=== PATIENT | female | born 1995 | race Caucasian/White ===

== ENCOUNTER 2020-11-07 00:18 | Inpatient (IN) | payer BC ==
[2020-11-07] MEDS ORDERED: Sodium Chloride 0.9% 10 ML Syringe FLUSH PRN ×2 (01:06→02:54)
[2020-11-07] MEDS ORDERED: Nalbuphine 10 MG/1 ML Vial IVPUSH PRN (01:06)
[2020-11-07] MEDS ORDERED: Lidocaine 1% 50 ML MDV INJECT ONE (01:06)
[2020-11-07] MEDS ORDERED: Ampicillin 2 GM in Sodium Chloride 0.9% 100 ML IV ONE (01:30)
[2020-11-07] MEDS: Lactated Ringers 1,000 ML IV SCH ×4 (01:51→07:34)
[2020-11-07] MEDS ORDERED: Lidocaine 1%/Sod Bicarbonate in NS 8.4% 1 ML Syringe IDERM PRN (02:54)
[2020-11-07] MEDS ORDERED: fentaNYL 100 MCG/2 ML SDV ONE (02:58)
[2020-11-07] MEDS ORDERED: Lactated Ringers 1,000 ML IV SCH (03:00)
--- NOTE | 2020-11-07 03:30 | PCM.PREANE ---
Preanesthetic Assessment - Procedure Proposed Procedure: jose - Anesthesia/Transfusion/Family Hx Anesthesia History: Prior Anesthesia Without Reaction Family History of Anesthesia Reaction: No Transfusion History: No Prior Transfusion(s) - Review of Systems General: No Symptoms Pulmonary: No Symptoms Cardiovascular: No Symptoms Gastrointestinal: No Symptoms Neurological: No Symptoms Other: Reports: None - Physical Assessment Vital Signs: Last Vital Signs Temp 98.9 F 11/07/20 00:32 Pulse 101 H 11/07/20 00:32 Resp 14 11/07/20 00:32 BP 130/89 11/07/20 00:32 Pulse Ox 98 11/07/20 00:32 Height: 5 ft 6 in Weight: 83.915 kg ASA Class: 2 Mental Status: Alert & Oriented x3 Airway Class: Mallampati = 2 Dentition: Reports: Normal Dentition Thyro-Mental Finger Breadths: 3 Mouth Opening Finger Breadths: 3 ROM/Head Extension: Full Lungs: Clear to Auscultation, Normal Respiratory Effort Cardiovascular: Regular Rate, Regular Rhythm - Lab Values: Laboratory Last Values WBC 14.24 K/mm3 (3.98-10.04) H 11/07/20 01:25 RBC 4.44 M/mm3 (3.98-5.22) 11/07/20 01:25 Hgb 12.7 gm/dl (11.2-15.7) 11/07/20 01:25 Hct 38.4 % (34.1-44.9) 11/07/20 01:25 MCV 86.5 fl (79.4-94.8) 11/07/20 01:25 MCH 28.6 pg (25.6-32.2) 11/07/20 01:25 MCHC 33.1 g/dl (32.2-35.5) 11/07/20 01:25 RDW Std Deviation 46.4 fL (36.4-46.3) H 11/07/20 01:25 Plt Count 177 K/mm3 (182-369) L 11/07/20 01:25 MPV 12.1 fl (9.4-12.3) 11/07/20 01:25 Neut % (Auto) 83.0 % (34.0-71.1) H 11/07/20 01:25 Lymph % (Auto) 11.0 % (19.3-51.7) L 11/07/20 01:25 [place] % (Auto) 5.0 % (4.7-12.5) 11/07/20 01:25 Eos % (Auto) 0.3 (0.7-5.8) L 11/07/20 01:25 Baso % (Auto) 0.1 % (0.1-1.2) 11/07/20 01:25 Neut # (Auto) 11.83 K/mm3 (1.56-6.13) H 11/07/20 01:25 Lymph # (Auto) 1.56 K/mm3 (1.18-3.74) 11/07/20 01:25 [place] # (Auto) 0.71 K/mm3 (0.24-0.36) H 11/07/20 01:25 Eos # (Auto) 0.04 K/mm3 (0.04-0.36) 11/07/20 01:25 Baso # (Auto) 0.02 K/mm3 (0.01-0.08) 11/07/20 01:25 - Allergies Allergies/Adverse Reactions: Allergies Allergy/AdvReac Type Severity Reaction Status Date / Time No Known Allergies Allergy Verified 11/07/20 00:31 - Blood Blood Available: No - Acknowledgements Anesthesia Type Planned: Epidural Pt an Appropriate Candidate for the Planned Anesthesia: Yes Alternatives and Risks of Anesthesia Discussed w Pt/Guardian: Yes Pt/Guardian Understands and Agrees with Anesthesia Plan: Yes PreAnesthesia Questionnaire Cardiovascular History: Reports: None Respiratory History: Reports: None Gastrointestinal History: Reports: GERD (minimal) : 1 (40 weeks) Para: 0 Musculoskeletal History: Reports: None Psychiatric History: Reports: None Oncologic (Cancer) History: Reports: None - Past Surgical History HEENT Surgical History: Reports: Oral Surgery - History Comment History Comment: vits for home - SUBSTANCE USE Tobacco Use Status *Q: Never Tobacco User Tobacco Use Within Last Twelve Months: No Second Hand Smoke Exposure: No Days Per Week of Alcohol Use: 0 Recreational Drug Use History: No - CURRENT (IN HOUSE) MEDS Current Meds: Current Medications Lactated Ringer's (Ringers, Lactated) 1,000 mls @ 100 mls/hr IV ASDIRECTED [facility] Last Admin: 11/07/20 03:18 Dose: 100 mls/hr Documented by: Ampicillin Sodium 1 gm/ Sodium (Chloride) 100 mls @ 200 mls/hr IV Q4H [facility] Lactated Ringer's (Ringers, Lactated) 1,000 mls @ 125 mls/hr IV ASDIRECTED [facility] Lidocaine/Sodium Bicarbonate (Lidocaine 1%/Sod Bicarbonate In Ns 8.4% 1 Ml Syringe) 0.25 ml IDERM ONETIME PRN PRN Reason: Prior to IV Start Nalbuphine HCl (Nalbuphine 10 Mg/1 Ml Vial) 10 mg IVPUSH Q2H PRN PRN Reason: Pain Sodium Chloride (Sodium Chloride 0.9% 10 Ml Syringe) 10 ml FLUSH ASDIRECTED PRN PRN Reason: Keep Vein Open Sodium Chloride (Sodium Chloride 0.9% 10 Ml Syringe) 10 ml FLUSH ASDIRECTED PRN PRN Reason: Keep Vein Open Discontinued Medications Fentanyl (Fentanyl 100 Mcg/2 Ml Sdv) Confirm Administered Dose 100 mcg .ROUTE .STK-MED ONE Stop: 11/07/20 02:59 Last Admin: 11/07/20 03:03 Dose: 100 mcg Documented by: Ampicillin Sodium 2 gm/ Sodium (Chloride) 100 mls @ 200 mls/hr IV ONETIME ONE Stop: 11/07/20 01:59 Last Admin: 11/07/20 01:52 Dose: 200 mls/hr Documented by: Lidocaine HCl (Lidocaine 1% 50 Ml Mdv) 50 ml INJECT ONETIME ONE Stop: 11/07/20 01:07
[2020-11-07] MEDS ORDERED: diphenhydrAMINE 50 MG/ML SDV IVPUSH PRN (03:31)
[2020-11-07] MEDS ORDERED: ePHEDrine 50 MG/ML SDV IVPUSH PRN (03:31)
[2020-11-07] MEDS ORDERED: fentaNYL 100 MCG/2 ML SDV EPIDUR PRN (03:31)
[2020-11-07] MEDS ORDERED: Bupivacaine/fentaNYL/NS 100 ML Bag EPIDUR PRN (03:31)
[2020-11-07] MEDS: Ampicillin 1 GM in Sodium Chloride 0.9% 100 ML IV SCH ×2 (05:12→09:12)
--- NOTE | 2020-11-07 07:27 | PCM.LDHP ---
L&D History of Present Illness - General Date of Service: 11/07/20 Admit Problem/Dx: Patient Status Order with Admit Dx/Problem 11/07/20 00:32 Patient Status [ADT] Routine 11/07/20 01:06 Patient Status [ADT] Routine Admission Diagnosis/Problem Admission Diagnosis/Problem Source of Information: Patient History Limitations: Reports: No Limitations - History of Present Illness Introduction:: Patient is a 24 y/o at 40 3/7 wks who presented in early AM hours in labor. Doing well currently. Comfortable with epidural Pain Score: 0 - Related Data Allergies/Adverse Reactions: Allergies Allergy/AdvReac Type Severity Reaction Status Date / Time No Known Allergies Allergy Verified 11/07/20 00:31 Home Medications: Home Meds Vit #76/Iron,Carb/Fa [Prenatabs Rx] 1 tab PO DAILY 11/07/20 [History] Past Medical History Gastrointestinal History: Reports: GERD (minimal) LATHE SPOTTER History: Reports: : 1 Para: 0 LMP (Approximate): - Past Surgical History HEENT Surgical History: Reports: LASIK, Oral Surgery Social & Family History - Tobacco Use Tobacco Use Status *Q: Never Tobacco User Second Hand Smoke Exposure: No - Caffeine Use Caffeine Use: Reports: None - Alcohol Use Alcohol Use History: No Days Per Week of Alcohol Use: 0 - Recreational Drug Use Recreational Drug Use: No H&P Review of Systems - Review of Systems: Review Of Systems: See Below General: Reports: No Symptoms Pulmonary: Reports: No Symptoms Cardiovascular: Reports: No Symptoms Gastrointestinal: Reports: No Symptoms Genitourinary: Reports: No Symptoms Musculoskeletal: Reports: No Symptoms Skin: Reports: No Symptoms Neurological: Reports: No Symptoms L&D Exam - Exam Exam: See Below - Vital Signs Vital Signs: Last Vital Signs Temp 37.2 C 11/07/20 00:32 Pulse 101 H 11/07/20 00:32 Resp 14 11/07/20 00:32 BP 130/89 11/07/20 00:32 Pulse Ox 98 11/07/20 00:32 Weight: 83.915 kg - OB Specific Contraction Intensity: Moderate to Strong Movement: Active Heart Tones: Present Heart Tones per Min: 135 Heart Rate (FHR) Variability: Moderate (6-25 bmp) Presentation: Vertex - Stark Score Stark Score Cervix Position: Anterior Stark Score Consistency: Soft Stark Score Effacement: >80% Stark Score Dilation: > 5 cm Stark Score 's Station: -1 ,0 Stark Score Total: 12 - Exam General: Alert, Oriented, Cooperative Lungs: Clear to Auscultation, Normal Respiratory Effort Cardiovascular: Regular Rate, Regular Rhythm GI/Abdominal Exam: Soft, Non-Tender Genitourinary: Normal external exam - Patient Data Lab Results Last 24 hrs: Laboratory Results - last 24 hr 11/07/20 11/07/20 Range/Units 01:25 03:45 WBC 14.24 H (3.98-10.04) K/mm3 RBC 4.44 (3.98-5.22) M/mm3 Hgb 12.7 (11.2-15.7) gm/dl Hct 38.4 (34.1-44.9) % MCV 86.5 (79.4-94.8) fl MCH 28.6 (25.6-32.2) pg MCHC 33.1 (32.2-35.5) g/dl RDW Std Deviation 46.4 H (36.4-46.3) fL Plt Count 177 L (182-369) K/mm3 MPV 12.1 (9.4-12.3) fl Neut % (Auto) 83.0 H (34.0-71.1) % Lymph % (Auto) 11.0 L (19.3-51.7) % [place] % (Auto) 5.0 (4.7-12.5) % Eos % (Auto) 0.3 L (0.7-5.8) Baso % (Auto) 0.1 (0.1-1.2) % Neut # (Auto) 11.83 H (1.56-6.13) K/mm3 Lymph # (Auto) 1.56 (1.18-3.74) K/mm3 [place] # (Auto) 0.71 H (0.24-0.36) K/mm3 Eos # (Auto) 0.04 (0.04-0.36) K/mm3 Baso # (Auto) 0.02 (0.01-0.08) K/mm3 SARS-CoV-2 RNA (TERRELL) Negative (NEGATIVE) Result Diagrams: 11/07/20 01:25 - Problem List (1) 40 weeks gestation of SNOMED Code(s): 13463957 ICD Code: Z3A.40 - 40 WEEKS GESTATION OF Status: Acute Current Visit: Yes (2) GBS (group B Streptococcus carrier), +RV culture, currently SNOMED Code(s): 5505297435978, 530327247, 1254467939703 ICD Code: O99.820 - STREPTOCOCCUS B CARRIER STATE COMPLICATING Status: Acute Current Visit: Yes Problem List Initiated/Reviewed/Updated: Yes Orders Last 24hrs: Active Orders 24 hr Category Date Time Status Patient Status [ADT] Routine ADT 11/07/20 00:32 Active Patient Status [ADT] Routine ADT 11/07/20 01:06 Active Activity as Tolerated [RC] PFP Care 11/07/20 01:06 Active Communication Order [RC] ASDIRECTED Care 11/07/20 01:06 Active Notify Provider [RC] ASDIRECTED Care 11/07/20 03:31 Active Notify Provider [RC] PFP Care 11/07/20 01:06 Active Notify Provider [RC] PRN Care 11/07/20 01:06 Active Vital Signs [RC] 03,09,15,21 Care 11/07/20 00:32 Active HEP C VIRUS AB [REF] Stat Lab 11/07/20 01:25 Received RAPID PLASMA REAGIN,RPR [CHEM] Routine Lab 11/07/20 01:25 Received Ampicillin 1 gm Med 11/07/20 05:30 Active Sodium Chloride 0.9% [Normal Saline] 100 ml IV Q4H Bupivacaine/fentaNYL/NS [fentaNYL/Bupivacaine/NS 2 MCG- Med 11/07/20 03:31 Active 0.125% 100 ML] 100 ml EPIDUR ASDIRECTED PRN Lactated Ringers [Ringers, Lactated] 1,000 ml Med 11/07/20 01:15 Active IV ASDIRECTED Nalbuphine [Nubain] Med 11/07/20 01:06 Active 10 mg IVPUSH Q2H PRN Sodium Chloride 0.9% [Saline Flush] Med 11/07/20 01:06 Active 10 ml FLUSH ASDIRECTED PRN diphenhydrAMINE [Benadryl] Med 11/07/20 03:31 Active 25 mg IVPUSH Q6H PRN ePHEDrine [ePHEDrine sulfate] Med 11/07/20 03:31 Active 5 mg IVPUSH ASDIRECTED PRN fentaNYL [Sublimaze] Med 11/07/20 03:31 Active 100 mcg EPIDUR Q3H PRN Electronic Heart Tones Ext w TOCO [WOMSER] Oth 11/07/20 01:06 Ordered Routine Electronic Heart Tones Internal [WOMSER] Per Unit Oth 11/07/20 01:06 Ordered Routine Peripheral IV Insertion Adult [OM.PC] Routine Oth 11/07/20 01:06 Ordered Resuscitation Status Routine Resus Stat 11/07/20 00:32 Ordered Medication Orders Diphenhydramine HCl (Diphenhydramine 50 Mg/Ml Sdv) 25 mg IVPUSH Q6H PRN PRN Reason: pruritis Ephedrine Sulfate (Ephedrine 50 Mg/Ml Sdv) 5 mg IVPUSH ASDIRECTED PRN PRN Reason: Hypotension Fentanyl (Fentanyl 100 Mcg/2 Ml Sdv) 100 mcg EPIDUR Q3H PRN PRN Reason: Pain Fentanyl/Bupivacaine HCl (Bupivacaine/Fentanyl/Ns 100 Ml Bag) 100 ml EPIDUR ASDIRECTED PRN PRN Reason: Pain Last Admin: 11/07/20 04:50 Dose: 100 ml Documented by: OSIEL Lactated Ringer's (Ringers, Lactated) 1,000 mls @ 100 mls/hr IV ASDIRECTED [facility] Last Admin: 11/07/20 03:18 Dose: 100 mls/hr Documented by: Infusion: 11/07/20 03:18 Dose: 100 mls/hr Documented by: Admin: 11/07/20 02:38 Dose: 100 mls/hr Documented by: Infusion: 11/07/20 02:38 Dose: 100 mls/hr Documented by: Admin: 11/07/20 01:51 Dose: 100 mls/hr Documented by: TULIO Ampicillin Sodium 1 gm/ Sodium (Chloride) 100 mls @ 200 mls/hr IV Q4H [facility] Last Admin: 11/07/20 05:12 Dose: 200 mls/hr Documented by: OSIEL Nalbuphine HCl (Nalbuphine 10 Mg/1 Ml Vial) 10 mg IVPUSH Q2H PRN PRN Reason: Pain Sodium Chloride (Sodium Chloride 0.9% 10 Ml Syringe) 10 ml FLUSH ASDIRECTED PRN PRN Reason: Keep Vein Open Assessment/Plan Comment:: * Labs done and WNL * GBS positive, receiving Ampicillin * Epidural in place * Anticipate
[2020-11-07] MEDS ORDERED: Oxytocin/Lactated Ringers 10 UNIT/1,000 ML BAG IV SCH (08:45)
[2020-11-07] MEDS ORDERED: Bupivacaine 0.25% 10 ML SDV ONE (09:00)
--- NOTE | 2020-11-07 11:01 | PCM.DEL ---
L & D Note - General Info Date of Service: 11/07/20 - Delivery Note Labor: Spontaneous Delivery Outcome: Livebirth Delivery Method: Spontaneous Vaginal Delivery-Single Delivery Mode: Spontaneous Presentation: Right Occiput Anterior ([place]) Nuchal Cord: None Anesthesia Type: Epidural Amniotic Fluid Description: Clear Episiotomy Type: None Laceration: 2nd Degree Suture type: Vicryl Suture size: 2-0 Placenta: Intact, Spontaneous Cord: 3 Vessels Resuscitation Needed: Yes : Bulb Syringe, Stimulated, Lester Used, Warmer Used Delivery Comments (Free Text/Narrative):: Patient found to be complete and began pushing. With maternal pushing effort head delivered from an [place] presentation. No nuchal cord present. With gentle downward traction the shoulders and body delivered. Infant placed on maternal abdomen. Cord clamped and cut. Cord blood obtained. Placenta allowed time to separate and expelled intact. Inspection of perineum showed a 2nd degree laceration which was repaired with a 2-0 Vicryl in the typical fashion - General Info Date of Service: 11/07/20 - Patient Data Vitals - Most Recent: Last Vital Signs Temp 37.2 C 11/07/20 00:32 Pulse 101 H 11/07/20 00:32 Resp 14 11/07/20 00:32 BP 130/89 11/07/20 00:32 Pulse Ox 98 11/07/20 00:32 Weight - Most Recent: 83.915 kg I&O - Last 24 Hours: Intake & Output 11/06/20 11/07/20 11/07/20 22:59 06:59 14:59 Intake Total 2200 1100 Output Total 2000 Balance 2200 -900 - Exam Urinary Catheter Total Time: 0Days 6Hours - Problem List & Annotations (1) 40 weeks gestation of SNOMED Code(s): 73364679 Code(s): Z3A.40 - 40 WEEKS GESTATION OF Status: Acute Current Visit: Yes (2) GBS (group B Streptococcus carrier), +RV culture, currently SNOMED Code(s): 5034448066711, 457189598, 0919055872042 Code(s): O99.820 - STREPTOCOCCUS B CARRIER STATE COMPLICATING Status: Acute Current Visit: Yes (3) Vaginal delivery SNOMED Code(s): 447811186 Code(s): O80 - ENCOUNTER FOR FULL-TERM UNCOMPLICATED DELIVERY Status: Acute Current Visit: Yes - Problem List Review Problem List Initiated/Reviewed/Updated: Yes - My Orders Last 24 Hours: My Active Orders 11/07/20 00:32 Patient Status [ADT] Routine Resuscitation Status Routine 11/07/20 01:06 Patient Status [ADT] Routine Activity as Tolerated [RC] PFP Communication Order [RC] ASDIRECTED Notify Provider [RC] PFP Notify Provider [RC] PRN Nalbuphine [Nubain] 10 mg IVPUSH Q2H PRN Sodium Chloride 0.9% [Saline Flush] 10 ml FLUSH ASDIRECTED PRN Electronic Heart Tones Ext w TOCO [WOMSER] Routine Electronic Heart Tones Internal [WOMSER] Per Unit Routine Peripheral IV Insertion Adult [OM.PC] Routine 11/07/20 01:15 Lactated Ringers [Ringers, Lactated] 1,000 ml IV ASDIRECTED 11/07/20 01:25 HEP C VIRUS AB [REF] Stat RAPID PLASMA REAGIN,RPR [CHEM] Routine 11/07/20 05:30 Ampicillin 1 gm Sodium Chloride 0.9% [Normal Saline] 100 ml IV Q4H 11/07/20 08:45 Oxytocin/Lactated Ringers [Pitocin in LR 10 Units/1,000 ML] 10 unit in 1,000 ml IV ASDIRECTED - Assessment Assessment:: PPD#0 - Plan Plan:: * Routine cares * Breast feeding * Discharge home in 2 days
[2020-11-07] MEDS ORDERED: Docusate Sodium 100 MG Cap PO PRN (12:36)
[2020-11-07] MEDS ORDERED: Acetaminophen 325 MG Tab PO PRN (12:36)
[2020-11-07] MEDS ORDERED: Benzocaine/Menthol 20%-0.5% Spray 56 GM Canister TOP PRN (12:36)
[2020-11-07] MEDS ORDERED: Witch Hazel Medicated Pads 40/Jar TOP PRN (12:36)
[2020-11-07] MEDS: Ibuprofen 600 MG Tab PO PRN ×2 (13:18→19:52)
--- NOTE | 2020-11-08 07:43 | PCM.PNPP ---
- General Info Date of Service: 11/08/20 Functional Status: Reports: Pain Controlled, Tolerating Diet, Ambulating, Urinating - Review of Systems General: Reports: No Symptoms Pulmonary: Reports: No Symptoms Cardiovascular: Reports: No Symptoms Gastrointestinal: Reports: No Symptoms Genitourinary: Reports: No Symptoms Musculoskeletal: Reports: No Symptoms Neurological: Reports: No Symptoms - Patient Data Vital Signs - Most Recent: Last Vital Signs Temp 36.7 C 11/08/20 02:57 Pulse 85 11/08/20 02:57 Resp 18 11/08/20 02:57 BP 126/72 11/08/20 02:57 Pulse Ox 95 11/08/20 02:57 Weight - Most Recent: 83.915 kg I&O - Last 24 Hours: Intake & Output 11/07/20 11/08/20 11/08/20 22:59 06:59 14:59 Intake Total 0 Balance 0 Lab Results - Last 24 Hours: Laboratory Results - last 24 hr 11/07/20 Range/Units 01:25 RPR Non-reactive (NONREACTIVE) Med Orders - Current: Current Medications Acetaminophen (Acetaminophen 325 Mg Tab) 650 mg PO Q4H PRN PRN Reason: mild pain or fever Benzocaine/Menthol (Benzocaine/Menthol 20%-0.5% [place] 56 Gm Canister) 0 gm TOP ASDIRECTED PRN PRN Reason: Perineal Comfort Measure Last Admin: 11/07/20 13:17 Dose: 1 can Documented by: Docusate Sodium (Docusate Sodium 100 Mg Cap) 100 mg PO BID PRN PRN Reason: Constipation Last Admin: 11/07/20 13:17 Dose: 100 mg Documented by: Ibuprofen (Ibuprofen 600 Mg Tab) 600 mg PO Q6H PRN PRN Reason: Mild pain or fever Last Admin: 11/07/20 19:52 Dose: 600 mg Documented by: Witch Isa (Witch Isa Medicated Pads 40/Jar) 1 pad TOP ASDIRECTED PRN PRN Reason: Perineal Comfort Measure Last Admin: 11/07/20 13:17 Dose: 1 tub Documented by: Discontinued Medications Bupivacaine HCl (Bupivacaine 0.25% 10 Ml Sdv) 10 ml .ROUTE .STK-MED ONE Stop: 11/07/20 09:01 Diphenhydramine HCl (Diphenhydramine 50 Mg/Ml Sdv) 25 mg IVPUSH Q6H PRN PRN Reason: pruritis Ephedrine Sulfate (Ephedrine 50 Mg/Ml Sdv) 5 mg IVPUSH ASDIRECTED PRN PRN Reason: Hypotension Fentanyl (Fentanyl 100 Mcg/2 Ml Sdv) Confirm Administered Dose 100 mcg .ROUTE .STK-MED ONE Stop: 11/07/20 02:59 Last Admin: 11/07/20 03:03 Dose: 100 mcg Documented by: Fentanyl (Fentanyl 100 Mcg/2 Ml Sdv) 100 mcg EPIDUR Q3H PRN PRN Reason: Pain Fentanyl/Bupivacaine HCl (Bupivacaine/Fentanyl/Ns 100 Ml Bag) 100 ml EPIDUR ASDIRECTED PRN PRN Reason: Pain Last Admin: 11/07/20 04:50 Dose: 100 ml Documented by: Lactated Ringer's (Ringers, Lactated) 1,000 mls @ 100 mls/hr IV ASDIRECTED [facility] Last Admin: 11/07/20 07:34 Dose: 100 mls/hr Documented by: Ampicillin Sodium 2 gm/ Sodium (Chloride) 100 mls @ 200 mls/hr IV ONETIME ONE Stop: 11/07/20 01:59 Last Admin: 11/07/20 01:52 Dose: 200 mls/hr Documented by: Ampicillin Sodium 1 gm/ Sodium (Chloride) 100 mls @ 200 mls/hr IV Q4H [facility] Last Admin: 11/07/20 09:12 Dose: 200 mls/hr Documented by: Lactated Ringer's (Ringers, Lactated) 1,000 mls @ 125 mls/hr IV ASDIRECTED [facility] Oxytocin/Lactated Ringer's (Pitocin In Lr 10 Units/1,000 Ml) 10 unit in 1,000 mls @ 500 mls/hr IV ASDIRECTED [facility]; Protocol Last Admin: 11/07/20 10:46 Dose: 500 mls/hr Documented by: Lidocaine HCl (Lidocaine 1% 50 Ml Mdv) 50 ml INJECT ONETIME ONE Stop: 11/07/20 01:07 Last Admin: 11/07/20 12:46 Dose: Not Given Documented by: Lidocaine/Sodium Bicarbonate (Lidocaine 1%/Sod Bicarbonate In Ns 8.4% 1 Ml Syringe) 0.25 ml IDERM ONETIME PRN PRN Reason: Prior to IV Start Nalbuphine HCl (Nalbuphine 10 Mg/1 Ml Vial) 10 mg IVPUSH Q2H PRN PRN Reason: Pain Sodium Chloride (Sodium Chloride 0.9% 10 Ml Syringe) 10 ml FLUSH ASDIRECTED PRN PRN Reason: Keep Vein Open Sodium Chloride (Sodium Chloride 0.9% 10 Ml Syringe) 10 ml FLUSH ASDIRECTED PRN PRN Reason: Keep Vein Open - Interaction Disposition, : in Room with Family Infant Interaction: Holding Infant Feeding: Attempted ; Nursed Fair/Poor Support Person: - Recovery Exam Fundal Tone: Firm Fundal Level: At Umbilicus Fundal Placement: Midline Lochia Amount: Scant, Small Lochia Color: Rubra/Red Perineum Description: Other (see below) Other Perinuem Description: second degree laceration with repair Episiotomy/Laceration: Approximated Bladder Status: Voiding Urinary Elimination: Voided - Exam General: Alert, Oriented, Cooperative GI/Abdominal Exam: Soft, Non-Tender - Problem List & Annotations (1) 40 weeks gestation of SNOMED Code(s): 28006150 Code(s): Z3A.40 - 40 WEEKS GESTATION OF Status: Acute Current Visit: Yes (2) GBS (group B Streptococcus carrier), +RV culture, currently SNOMED Code(s): 7499782719981, 831743525, 4319729580819 Code(s): O99.820 - STREPTOCOCCUS B CARRIER STATE COMPLICATING St atus: Acute Current Visit: Yes (3) Vaginal delivery SNOMED Code(s): 834660633 Code(s): O80 - ENCOUNTER FOR FULL-TERM UNCOMPLICATED DELIVERY Status: Acute Current Visit: Yes - Problem List Review Problem List Initiated/Reviewed/Updated: Yes - My Orders Last 24 Hours: My Active Orders 11/07/20 Lunch Regular Diet [DIET] 11/07/20 12:36 Acetaminophen [TylenoL] 650 mg PO Q4H PRN Benzocaine/Menthol [Dermoplast Pain Relief [place]] See Dose Instructions TOP ASDIRECTED PRN Docusate Sodium [Colace] 100 mg PO BID PRN Ibuprofen [Motrin] 600 mg PO Q6H PRN witch Isa [Tucks] 1 pad TOP ASDIRECTED PRN Heat Therapy [OM.PC] PRN 11/07/20 12:36 Activity as Tolerated [RC] PER UNIT ROUTINE Vital Signs [RC] 03,09,, Assess Lochia [WOMSER] Per Unit Routine Assess Uterine Involution [WOMSER] Per Unit Routine Breast Pump [WOMSER] Per Unit Routine Ice Therapy [OM.PC] Per Unit Routine Perineal Care [OM.PC] Per Unit Routine Peripheral IV Discontinue [OM.PC] Routine Sitz Bath [OM.PC] Per Unit Routine 11/08/20 12:36 Heat Therapy [OM.PC] PRN - Assessment Assessment:: PPD#1 - Plan Plan:: * Routine cares * Breast feeding * Discharge home tomorrow
[2020-11-08] MEDS: Ibuprofen 600 MG Tab PO PRN ×2 (08:12→20:04)
--- NOTE | 2020-11-08 08:29 | PCM48HPAN ---
Post Anesthesia Note - EVALUATION WITHIN 48HRS OF ANESTHETIC Vital Signs in Normal Range: Yes Patient Participated in Evaluation: Yes Respiratory Function Stable: Yes Airway Patent: Yes Cardiovascular Function Stable: Yes Hydration Status Stable: Yes Pain Control Satisfactory: Yes Nausea and Vomiting Control Satisfactory: Yes Mental Status Recovered: Yes Vital Signs: Last Vital Signs Temp 36.7 C 11/08/20 02:57 Pulse 85 11/08/20 02:57 Resp 18 11/08/20 02:57 BP 126/72 11/08/20 02:57 Pulse Ox 95 11/08/20 02:57
--- NOTE | 2020-11-09 06:32 | PCM.DCSUM1 ---
Discharge Summary - Discharge Data Discharge Date: 11/09/20 Discharge Disposition: Home, Self-Care 01 Condition: Good - Referral to Home Health Primary Care Physician: Dior Oconnell MD - Discharge Diagnosis/Problem(s) (1) 40 weeks gestation of SNOMED Code(s): 65306404 ICD Code: Z3A.40 - 40 WEEKS GESTATION OF Status: Acute Current Visit: Yes (2) GBS (group B Streptococcus carrier), +RV culture, currently SNOMED Code(s): 6389889522990, 820842996, 9078051457249 ICD Code: O99.820 - STREPTOCOCCUS B CARRIER STATE COMPLICATING Status: Acute Current Visit: Yes (3) Vaginal delivery SNOMED Code(s): 732112343 ICD Code: O80 - ENCOUNTER FOR FULL-TERM UNCOMPLICATED DELIVERY Status: Acute Current Visit: Yes - Patient Summary/Data Complications: none Consults: none Recommended Follow-up Testing/Procedures: Follow up in 3 weeks for check Hospital Course: 24 y/o at 40 3/7 wks presented in spontaneous labor. Progressed well to complete dilation. Underwent an uncomplicated . See delivery note. did well. Was discharged home on PPD#2 - Patient Instructions Diet: Regular Diet as Tolerated Activity: As Tolerated Activity, Other: Pelvic rest for 6 weeks Driving: May Drive Today Showering/Bathing: May Shower Showering/Bathing, Other: May Bathe Notify Provider of: Fever, Increased Pain, Swelling and Redness, Drainage, Nausea and/or Vomiting - Discharge Plan *PRESCRIPTION DRUG MONITORING PROGRAM REVIEWED*: No *COPY OF PRESCRIPTION DRUG MONITORING REPORT IN PATIENT JERALD: No Home Medications: Home Meds Vit #76/Iron,Carb/Fa [Prenatabs Rx] 1 tab PO DAILY 11/07/20 [History] Docusate Sodium [Colace] 100 mg PO BID PRN cap 11/09/20 [Rx] Ibuprofen [Motrin] 600 mg PO Q6H PRN tablet 11/09/20 [Rx] Referrals: Dior Oconnell MD [Primary Care Provider] - (3 weeks for check ) - Discharge Summary/Plan Comment DC Time >30 min.: No - Patient Data Vitals - Most Recent: Last Vital Signs Temp 36.8 C 11/09/20 02:57 Pulse 84 11/09/20 02:57 Resp 14 11/09/20 02:57 BP 129/83 11/09/20 02:57 Pulse Ox 96 11/09/20 02:57 Weight - Most Recent: 83.915 kg I&O - Last 24 hours: Intake & Output 11/08/20 11/08/20 11/09/20 14:59 22:59 06:59 Intake Total 60 Balance 60 Med Orders - Current: Current Medications Acetaminophen (Acetaminophen 325 Mg Tab) 650 mg PO Q4H PRN PRN Reason: mild pain or fever Benzocaine/Menthol (Benzocaine/Menthol 20%-0.5% [place] 56 Gm Canister) 0 gm TOP ASDIRECTED PRN PRN Reason: Perineal Comfort Measure Last Admin: 11/07/20 13:17 Dose: 1 can Documented by: Docusate Sodium (Docusate Sodium 100 Mg Cap) 100 mg PO BID PRN PRN Reason: Constipation Last Admin: 11/07/20 13:17 Dose: 100 mg Documented by: Ibuprofen (Ibuprofen 600 Mg Tab) 600 mg PO Q6H PRN PRN Reason: Mild pain or fever Last Admin: 11/08/20 20:04 Dose: 600 mg Documented by: Inga Diamondel (Witch Arabella Medicated Pads 40/Jar) 1 pad TOP ASDIRECTED PRN PRN Reason: Perineal Comfort Measure Last Admin: 11/07/20 13:17 Dose: 1 tub Documented by: Discontinued Medications Bupivacaine HCl (Bupivacaine 0.25% 10 Ml Sdv) 10 ml .ROUTE .STK-MED ONE Stop: 11/07/20 09:01 Diphenhydramine HCl (Diphenhydramine 50 Mg/Ml Sdv) 25 mg IVPUSH Q6H PRN PRN Reason: pruritis Ephedrine Sulfate (Ephedrine 50 Mg/Ml Sdv) 5 mg IVPUSH ASDIRECTED PRN PRN Reason: Hypotension Fentanyl (Fentanyl 100 Mcg/2 Ml Sdv) Confirm Administered Dose 100 mcg .ROUTE .STK-MED ONE Stop: 11/07/20 02:59 Last Admin: 11/07/20 03:03 Dose: 100 mcg Documented by: Fentanyl (Fentanyl 100 Mcg/2 Ml Sdv) 100 mcg EPIDUR Q3H PRN PRN Reason: Pain Fentanyl/Bupivacaine HCl (Bupivacaine/Fentanyl/Ns 100 Ml Bag) 100 ml EPIDUR ASDIRECTED PRN PRN Reason: Pain Last Admin: 11/07/20 04:50 Dose: 100 ml Documented by: Lactated Ringer's (Ringers, Lactated) 1,000 mls @ 100 mls/hr IV ASDIRECTED [facility] Last Admin: 11/07/20 07:34 Dose: 100 mls/hr Documented by: Ampicillin Sodium 2 gm/ Sodium (Chloride) 100 mls @ 200 mls/hr IV ONETIME ONE Stop: 11/07/20 01:59 Last Admin: 11/07/20 01:52 Dose: 200 mls/hr Documented by: Ampicillin Sodium 1 gm/ Sodium (Chloride) 100 mls @ 200 mls/hr IV Q4H [facility] Last Admin: 11/07/20 09:12 Dose: 200 mls/hr Documented by: Lactated Ringer's (Ringers, Lactated) 1,000 mls @ 125 mls/hr IV ASDIRECTED [facility] Oxytocin/Lactated Ringer's (Pitocin In Lr 10 Units/1,000 Ml) 10 unit in 1,000 mls @ 500 mls/hr IV ASDIRECTED [facility]; Protocol Last Admin: 11/07/20 10:46 Dose: 500 mls/hr Documented by: Lidocaine HCl (Lidocaine 1% 50 Ml Mdv) 50 ml INJECT ONETIME ONE Stop: 11/07/20 01:07 Last Admin: 11/07/20 12:46 Dose: Not Given Documented by: Lidocaine/Sodium Bicarbonate (Lidocaine 1%/Sod Bicarbonate In Ns 8.4% 1 Ml Syringe) 0.25 ml IDERM ONETIME PRN PRN Reason: Prior to IV Start Nalbuphine HCl (Nalbuphine 10 Mg/1 Ml Vial) 10 mg IVPUSH Q2H PRN PRN Reason: Pain Sodium Chloride (Sodium Chloride 0.9% 10 Ml Syringe) 10 ml FLUSH ASDIRECTED PRN PRN Reason: Keep Vein Open Sodium Chloride (Sodium Chloride 0.9% 10 Ml Syringe) 10 ml FLUSH ASDIRECTED PRN PRN Reason: Keep Vein Open
--- NOTE | 2020-11-09 06:32 | PCM.PNPP ---
- General Info Date of Service: 11/09/20 Functional Status: Reports: Pain Controlled, Tolerating Diet, Ambulating, Urinating - Review of Systems General: Reports: No Symptoms Pulmonary: Reports: No Symptoms Cardiovascular: Reports: No Symptoms Gastrointestinal: Reports: No Symptoms Genitourinary: Reports: No Symptoms Musculoskeletal: Reports: No Symptoms - Patient Data Vital Signs - Most Recent: Last Vital Signs Temp 36.8 C 11/09/20 02:57 Pulse 84 11/09/20 02:57 Resp 14 11/09/20 02:57 BP 129/83 11/09/20 02:57 Pulse Ox 96 11/09/20 02:57 Weight - Most Recent: 83.915 kg I&O - Last 24 Hours: Intake & Output 11/08/20 11/08/20 11/09/20 14:59 22:59 06:59 Intake Total 60 Balance 60 Med Orders - Current: Current Medications Acetaminophen (Acetaminophen 325 Mg Tab) 650 mg PO Q4H PRN PRN Reason: mild pain or fever Benzocaine/Menthol (Benzocaine/Menthol 20%-0.5% [place] 56 Gm Canister) 0 gm TOP ASDIRECTED PRN PRN Reason: Perineal Comfort Measure Last Admin: 11/07/20 13:17 Dose: 1 can Documented by: Docusate Sodium (Docusate Sodium 100 Mg Cap) 100 mg PO BID PRN PRN Reason: Constipation Last Admin: 11/07/20 13:17 Dose: 100 mg Documented by: Ibuprofen (Ibuprofen 600 Mg Tab) 600 mg PO Q6H PRN PRN Reason: Mild pain or fever Last Admin: 11/08/20 20:04 Dose: 600 mg Documented by: Inga Bell (Inga Bell Medicated Pads 40/Jar) 1 pad TOP ASDIRECTED PRN PRN Reason: Perineal Comfort Measure Last Admin: 11/07/20 13:17 Dose: 1 tub Documented by: Discontinued Medications Bupivacaine HCl (Bupivacaine 0.25% 10 Ml Sdv) 10 ml .ROUTE .STK-MED ONE Stop: 11/07/20 09:01 Diphenhydramine HCl (Diphenhydramine 50 Mg/Ml Sdv) 25 mg IVPUSH Q6H PRN PRN Reason: pruritis Ephedrine Sulfate (Ephedrine 50 Mg/Ml Sdv) 5 mg IVPUSH ASDIRECTED PRN PRN Reason: Hypotension Fentanyl (Fentanyl 100 Mcg/2 Ml Sdv) Confirm Administered Dose 100 mcg .ROUTE .STK-MED ONE Stop: 11/07/20 02:59 Last Admin: 11/07/20 03:03 Dose: 100 mcg Documented by: Fentanyl (Fentanyl 100 Mcg/2 Ml Sdv) 100 mcg EPIDUR Q3H PRN PRN Reason: Pain Fentanyl/Bupivacaine HCl (Bupivacaine/Fentanyl/Ns 100 Ml Bag) 100 ml EPIDUR ASDIRECTED PRN PRN Reason: Pain Last Admin: 11/07/20 04:50 Dose: 100 ml Documented by: Lactated Ringer's (Ringers, Lactated) 1,000 mls @ 100 mls/hr IV ASDIRECTED [facility] Last Admin: 11/07/20 07:34 Dose: 100 mls/hr Documented by: Ampicillin Sodium 2 gm/ Sodium (Chloride) 100 mls @ 200 mls/hr IV ONETIME ONE Stop: 11/07/20 01:59 Last Admin: 11/07/20 01:52 Dose: 200 mls/hr Documented by: Ampicillin Sodium 1 gm/ Sodium (Chloride) 100 mls @ 200 mls/hr IV Q4H [facility] Last Admin: 11/07/20 09:12 Dose: 200 mls/hr Documented by: Lactated Ringer's (Ringers, Lactated) 1,000 mls @ 125 mls/hr IV ASDIRECTED [facility] Oxytocin/Lactated Ringer's (Pitocin In Lr 10 Units/1,000 Ml) 10 unit in 1,000 mls @ 500 mls/hr IV ASDIRECTED [facility]; Protocol Last Admin: 11/07/20 10:46 Dose: 500 mls/hr Documented by: Lidocaine HCl (Lidocaine 1% 50 Ml Mdv) 50 ml INJECT ONETIME ONE Stop: 11/07/20 01:07 Last Admin: 11/07/20 12:46 Dose: Not Given Documented by: Lidocaine/Sodium Bicarbonate (Lidocaine 1%/Sod Bicarbonate In Ns 8.4% 1 Ml Syringe) 0.25 ml IDERM ONETIME PRN PRN Reason: Prior to IV Start Nalbuphine HCl (Nalbuphine 10 Mg/1 Ml Vial) 10 mg IVPUSH Q2H PRN PRN Reason: Pain Sodium Chloride (Sodium Chloride 0.9% 10 Ml Syringe) 10 ml FLUSH ASDIRECTED PRN PRN Reason: Keep Vein Open Sodium Chloride (Sodium Chloride 0.9% 10 Ml Syringe) 10 ml FLUSH ASDIRECTED PRN PRN Reason: Keep Vein Open - Infant Interaction Disposition, : [place] in Room with Family Infant Interaction: Holding Infant Feeding: Bottle Fed Support Person: - Recovery Exam Fundal Tone: Firm Fundal Level: At Umbilicus Fundal Placement: Midline Lochia Amount: Scant, Small Lochia Color: Rubra/Red Perineum Description: Other (see below) Other Perinuem Description: Second degree laceration wtith repair. Episiotomy/Laceration: Approximated Bladder Status: Voiding Urinary Elimination: Voided - Exam General: Alert, Oriented, Cooperative GI/Abdominal Exam: Soft, Non-Tender - Problem List & Annotations (1) 40 weeks gestation of SNOMED Code(s): 09294201 Code(s): Z3A.40 - 40 WEEKS GESTATION OF Status: Acute Current Visit: Yes (2) GBS (group B Streptococcus carrier), +RV culture, currently SNOMED Code(s): 5771790571372, 331045380, [id number] Code(s): O99.820 - STREPTOCOCCUS B CARRIER STATE COMPLICATING Status: Acute Current Visit: Yes (3) Vaginal delivery SNOMED Code(s): 838742550 Code(s): O80 - ENCOUNTER FOR FULL-TERM UNCOMPLICATED DELIVERY Status: Acute Current Visit: Yes - Problem List Review Problem List Initiated/Reviewed/Updated: Yes - My Orders Last 24 Hours: My Active Orders 11/08/20 12:36 Heat Therapy [OM.PC] PRN 11/09/20 06:31 Ready for Discharge [RC] PER UNIT ROUTINE - Assessment Assessment:: PPD#2 - Plan Plan:: * Routine cares * Decided to switch to formula. Doing well with this change * Discharge home today
[2020-11-09] MEDS: Ibuprofen 600 MG Tab PO PRN (06:47)
== END 2020-11-09 12:05 | disposition home or self-care (01) | DRG 560 ==
LOC: JD.OBCHECK 00:18 → JD.OB 00:24 → JD.OBCHECK 01:06 → OBSVTOIN 10:46 → JD.OB 10:47
PROVIDERS: ADMIT Obstetrics & Gynecology; ATTEND Obstetrics & Gynecology
PROC: 10E0XZZ Delivery of Products of Conception, External Approach (ICD-10-PCS; principal; 2020-11-07)
PROC: 10907ZC Drainage of Amniotic Fluid, Therapeutic from Products of Conception, Via Natural or Artificial Opening (ICD-10-PCS; 2020-11-07)
PROC: 0KQM0ZZ Repair Perineum Muscle, Open Approach (ICD-10-PCS; 2020-11-07)
PROC: 3E0R3BZ Introduction of Anesthetic Agent into Spinal Canal, Percutaneous Approach (ICD-10-PCS; 2020-11-07)
PROC: 00HU33Z Insertion of Infusion Device into Spinal Canal, Percutaneous Approach (ICD-10-PCS; 2020-11-07)
DX: O48.0 Post-term pregnancy (principal); Z37.0 Single live birth; Z3A.40 40 weeks gestation of pregnancy; O99.824 Streptococcus B carrier state complicating childbirth; O99.62 Diseases of the digestive system complicating childbirth; K21.9 Gastro-esophageal reflux disease without esophagitis; O70.1 Second degree perineal laceration during delivery; Z20.822 Contact with and (suspected) exposure to COVID-19
CPT/HCPCS: 01967; 36415; 51702; 59025; 59409; 85025; 86592; 86803; A9270-GY; J0290; J2590; J3010; J3490; J7120; U0002

== ENCOUNTER 2024-09-07 02:14 | Inpatient (IN) | payer BC ==
[2024-09-07] MEDS ORDERED: Ondansetron 4 MG/2 ML SDV IVPUSH PRN (02:59)
[2024-09-07] MEDS ORDERED: Sodium Chloride 0.9% 10 ML Syringe FLUSH PRN (02:59)
[2024-09-07] MEDS ORDERED: Lidocaine 1% 50 ML MDV INJECT PRN (02:59)
[2024-09-07] MEDS ORDERED: Nalbuphine 10 MG/1 ML Vial IVPUSH PRN (02:59)
[2024-09-07] MEDS ORDERED: Oxytocin/0.9 % Sodium Chloride 30 UNIT/500 ML BAG IV SCH (03:00)
[2024-09-07 03:20] LABS: BASOPHILS PERCENT AUTO 0.2 % (0.0-1.0); EOSINOPHILS ABSOLUTE AUTO 0.1 K/mm3 (0.0-0.4); EOSINOPHILS PERCENT AUTO 0.5 % (0.0-6.0); HEMATOCRIT 40.4 % (37.0-47.0); HEMOGLOBIN 13.2 gm/dl (12.0-16.0); IMMATURE GRAN ABSOLUTE AUTO 0.06 K/mm3 (0.00-0.05); IMMATURE GRAN PERCENT AUTO 0.5 % (0.0-0.4); LYMPHOCYTES ABSOLUTE AUTO 1.6 K/mm3 (1.0-4.8); LYMPHOCYTES PERCENT AUTO 13.1 % (24.0-44.0); MEAN CORPUSCULAR HEMOGLOBIN 27.5 pg (28.0-32.0); MEAN CORPUSCULAR HGB CONC 32.7 g/dl (32.0-36.0); MEAN CORPUSCULAR VOLUME 84.2 fl (83.0-99.0); MEAN PLATELET VOLUME 11.4 fl (9.4-12.3); MONOCYTES ABSOLUTE AUTO 0.6 K/mm3 (0.0-0.8); MONOCYTES PERCENT AUTO 4.5 % (0.0-8.0); NEUTROPHILS ABSOLUTE AUTO 9.9 K/mm3 (1.8-7.7); NEUTROPHILS PERCENT AUTO 81.2 % (41.0-71.0); PLATELET COUNT,PLT 155 K/mm3 (150-400); WHITE BLOOD CELL COUNT,WBC 12.18 K/mm3 (3.9-11.3)
[2024-09-07] MEDS: Lactated Ringers 1,000 ML IV SCH (03:22)
[2024-09-07] MEDS: Ampicillin 2 GM in Sodium Chloride 0.9% 100 ML IV ONE (03:23)
[2024-09-07] MEDS ORDERED: ePHEDrine 50 MG/ML SDV IVPUSH PRN (03:38)
[2024-09-07] MEDS ORDERED: diphenhydrAMINE 50 MG/ML SDV IVPUSH PRN (03:38)
[2024-09-07] MEDS: Bupivacaine/fentaNYL/NS 100 ML Bag EPIDUR PRN (03:47)
[2024-09-07] MEDS: Ampicillin 1 GM in Sodium Chloride 0.9% 100 ML IV SCH (06:58)
[2024-09-07] MEDS: Oxytocin/0.9 % Sodium Chloride 30 UNIT/500 ML BAG IV SCH (08:17)
[2024-09-07] MEDS ORDERED: Docusate Sodium 100 MG Cap PO PRN (08:52)
[2024-09-07] MEDS ORDERED: Acetaminophen 325 MG Tab PO PRN (08:52)
[2024-09-07] MEDS ORDERED: Sodium Chloride 0.9% 10 ML Syringe FLUSH SCH (09:00)
[2024-09-07] MEDS: Ibuprofen 600 MG Tab PO SCH ×2 (09:40→16:00)
[2024-09-07] MEDS: Witch Hazel Medicated Pads 40/Jar TOP PRN (09:41)
[2024-09-07] MEDS: Benzocaine/Menthol 20%-0.5% Spray 78 GM Cannister TOP PRN (09:41)
== END 2024-09-08 14:45 | disposition home or self-care (01) | DRG 560 ==
LOC: JD.OBCHECK 02:14 → JD.OB 02:24 → JD.OBCHECK 04:20 → OBSVTOIN 08:11 → JD.OB 08:12
PROVIDERS: ADMIT Obstetrics & Gynecology; ATTEND Obstetrics & Gynecology
PROC: 0KQM0ZZ Repair Perineum Muscle, Open Approach (ICD-10-PCS; principal; 2024-09-07)
PROC: 10E0XZZ Delivery of Products of Conception, External Approach (ICD-10-PCS; principal; 2024-09-07)
PROC: 3E0R3BZ Introduction of Anesthetic Agent into Spinal Canal, Percutaneous Approach (ICD-10-PCS; principal; 2024-09-07)
DX: O48.0 Post-term pregnancy (principal); Z3A.40 40 weeks gestation of pregnancy; Z37.0 Single live birth; Z98.890 Other specified postprocedural states; Z79.899 Other long term (current) drug therapy; O99.824 Streptococcus B carrier state complicating childbirth; O70.1 Second degree perineal laceration during delivery
CPT/HCPCS: 36415; 51702; 59025; 59409; 85025; 86592; 86850; 86900; 86901; A9270-GY; J0290; J3490; J7120; J7999

== ENCOUNTER 2024-11-13 06:21 | Emergency (ER) | payer BC ==
[2024-11-13 07:45] LABS: BASOPHILS ABSOLUTE AUTO 0.0 K/mm3 (0.0-0.2); BASOPHILS PERCENT AUTO 0.7 % (0.0-1.0); EOSINOPHILS ABSOLUTE AUTO 0.0 K/mm3 (0.0-0.4); EOSINOPHILS PERCENT AUTO 0.7 % (0.0-6.0); IMMATURE GRAN ABSOLUTE AUTO 0.02 K/mm3 (0.00-0.05); IMMATURE GRAN PERCENT AUTO 0.4 % (0.0-0.4); LYMPHOCYTES ABSOLUTE AUTO 1.3 K/mm3 (1.0-4.8); LYMPHOCYTES PERCENT AUTO 23.0 % (24.0-44.0); MEAN PLATELET VOLUME 11.6 fl (9.4-12.3); MONOCYTES ABSOLUTE AUTO 0.4 K/mm3 (0.0-0.8); MONOCYTES PERCENT AUTO 6.2 % (0.0-8.0); NEUTROPHILS ABSOLUTE AUTO 3.9 K/mm3 (1.8-7.7); NEUTROPHILS PERCENT AUTO 69.0 % (41.0-71.0); NRBC ABSOLUTE 0.00 (0.00-0.02); NRBC PERCENT 0.0 % (0.0-0.2); PLATELET COUNT,PLT 201 K/mm3 (150-400); RED BLOOD CELL COUNT 4.94 M/mm3 (4.10-5.30); WHITE BLOOD CELL COUNT,WBC 5.65 K/mm3 (3.9-11.3)
[2024-11-13 07:59] LABS: APPEARANCE,URINE CLOUDY (Clear); GLUCOSE,URINE NEGATIVE (Negative); OCCULT BLOOD,URINE 3+ (Negative)
[2024-11-13 08:14] LABS: BUPRENORPHINE SCREEN,URINE NEGATIVE (CUTOFF=10); METHADONE SCREEN, URINE NEGATIVE (CUTOFF=200); METHAMPHETAMINES SCREEN, URINE NEGATIVE (CUTOFF=500); OXYCODONE SCREEN,URINE NEGATIVE (CUT0FF=100); THC SCREEN,URINE 20 NG/ML PRESUMPTIVE POSITIVE (CUTOFF=50)
[2024-11-13 08:15] LABS: AMPHETAMINES SCREEN, URINE NEGATIVE (CUTOFF=500)
[2024-11-13 08:26] LABS: A/G RATIO 1.1 (1-2); ALANINE AMINOTRANSFERASE,ALT 58.0 U/L (14-59); ASPARTATE AMNIOTRANSFERASE,AST 21.0 U/L (15-37); BILIRUBIN TOTAL 1.1 mg/dL (0.2-1.0); BLOOD UREA NITROGEN,BUN 12.0 mg/dL (7-18); CARBON DIOXIDE,CO2 23.0 mEq/L (21-32); CHLORIDE,CL 107.0 mEq/L (98-107); CREATININE 1.0 mg/dL (0.55-1.02); EST CRCL DRUG DOSING (CG) 74.02 mL/min; ESTIMATED GFR 78.0 mL/min (>60); GLUCOSE RANDOM 102.0 mg/dL (70-99); POTASSIUM,K 3.6 mEq/L (3.5-5.1); PROTEIN TOTAL,TP 7.6 g/dl (6.4-8.2); SODIUM,NA 142.0 mEq/L (136-145); TSH 1.042 uIU/mL (0.358-3.74)
== END 2024-11-13 09:12 | disposition home or self-care (01) ==
LOC: JD.ED 06:21
DX: F41.0 Panic disorder [episodic paroxysmal anxiety] (principal); F32.A Depression, unspecified; G47.00 Insomnia, unspecified; R82.90 Unspecified abnormal findings in urine; Z79.899 Other long term (current) drug therapy
CPT/HCPCS: 36415; 80053; 80306; 81001; 83735; 84443; 85025; 99284; A9270

== ENCOUNTER 2024-12-02 08:26 | Emergency (ER) | payer BC ==
[2024-12-02] MEDS: LORazepam 2 MG/ML SDV IM STA (09:14)
== END 2024-12-02 09:19 | disposition home or self-care (01) ==
LOC: JD.ED 08:26
DX: O99.345 Other mental disorders complicating the puerperium (principal); F53.0 Postpartum depression; F41.9 Anxiety disorder, unspecified; Z79.899 Other long term (current) drug therapy
CPT/HCPCS: 96372; 99284; J2060; 99283